=== PATIENT | female | born 1945 | race Caucasian/White ===

== ENCOUNTER 2022-10-16 13:08 | Emergency (ER) | payer MEDICARE, OTHER, SELFPAY ==
--- NOTE | ~2022-10-16 | CT_ITS ---
EXAMINATION: CT ABDOMEN AND PELVIS WITH CONTRAST CLINICAL INFORMATION: Lower abdominal pain COMPARISON: None TECHNIQUE: Multidetector volumetric images were obtained from the superior aspect of the liver through the pubic symphysis following administration 85 mL of Omnipaque 350 intravenous contrast. Sagittal and coronal reformatted images were obtained on the technologist's workstation. Oral contrast: Yes This CT examination was performed using dose optimization techniques as appropriate, variously including the following: *Automated exposure control *Adjustment of mA and/or kV according to patient size (this includes techniques or standardized protocols for targeted exams where dose is matched to indication/reason for exam; i.e. extremities or head) *Use of iterative reconstruction technique DLP: 309 mGy-cm FINDINGS: LUNG BASES: The heart is enlarged. Tricuspid heart valve and pacemaker leads and median sternotomy wires. There is a moderate partially loculated right pleural effusion. There is a right middle lobe atelectasis/consolidation. A 1 cm peripheral or subpleural left lower lobe nodule. LIVER, GALLBLADDER, AND BILIARY TREE: The liver is enlarged. There is heterogeneous enhancement of the liver. The intrahepatic IVC and hepatic veins are prominent and findings may be related to right heart strain. No definite focal liver lesion. Normal gallbladder. No biliary duct dilatation. PANCREAS: Unremarkable. SPLEEN: Unremarkable. ADRENAL GLANDS: Unremarkable. KIDNEYS AND URETERS: There is a small 2 mm nonobstructing left lower pole renal stone. The kidneys are otherwise normal. BLADDER: Unremarkable. GASTROINTESTINAL TRACT: There is diverticulosis of the colon. There is wall thickening of the sigmoid colon. There is wall thickening of the rectum. There are prominent perirectal vessels. Appearance is questionable for proctocolitis or diverticulitis. The proximal right transverse and left colon appear distended and filled with stool and partial secondary obstruction should be considered. The appendix is normal. The small bowel is normal. The stomach is normal. There is a small amount of ascites in the abdomen and pelvis. ABDOMINAL WALL: No significant hernia is appreciated. LYMPH NODES: Normal. VASCULAR: Severe atherosclerotic disease. PELVIC VISCERA: Fatty right adnexal lesion probably representing a dermoid. OSSEOUS STRUCTURES: Mild scoliosis and degenerative changes of the spine. CT/CT abdomen pelvis w IV con IMPRESSION: Proctocolitis versus diverticulitis. The more proximal colon is distended and filled with stool and partial secondary obstruction should be considered. Small amount of ascites in the abdomen and pelvis. Small nonobstructing left renal stone. Probable right adnexal dermoid. Enlarged heart. Partially loculated right pleural effusion. Right middle lobe atelectasis/consolidation. 1 cm left lower lobe nodule. According to the UPDATED 2017 Fleischner Society recommendations, the advised follow-up imaging for 10 mm solid nodule: Follow-up chest CT at this time recommend Fleischner guidelines were followed.
[2022-10-16 13:18] VITALS: BP 133/43; BP 133/54; PULSE 69; RESP 18; TEMP 36.8; O2SAT 93; O2SAT 98; BMI 24.8
[2022-10-16 13:24] VITALS: BP 133/34; PULSE 69; RESP 16; TEMP 36.8; O2SAT 92
--- NOTE | 2022-10-16 13:56 | ED_ITS ---
HPI - Abdominal Pain General Chief Complaint: GI Bleed Stated Complaint: black tarry diarrhea x 2 days Time Seen by Provider: 10/16/22 13:24 Source: patient and EMS Mode of arrival: EMS Limitations: no limitations History of Present Illness HPI narrative: 77-year-old female with a history of coronary disease, hypertension, hyperlipidemia, diabetes who is here with complaints of rectal prolapse which is intermittent for the last 3 months. Patient reports she can not stand it anymore and she wants to have it repaired. She reports that she has had a prior procedure for rectal prolapse (Dr Landin at [facility]). She noticed some leaking from her rectum as well as some bleeding. Stools are normal in appearance she is also having some lower abdominal discomfort for the last few days with no vomiting, fevers or chills. Related Data Previous Rx's Medication Instructions Recorded levofloxacin 500 mg tablet 500 mg PO DAILY 7 days #7 tabs 10/16/22 metronidazole 500 mg tablet 500 mg PO BID 7 days #14 tabs 10/16/22 Allergies Allergy/AdvReac Type Severity Reaction Status Date / Time Penicillins [PENICILLINS] Allergy Intermediate RASH Unverified 05/16/20 16:06 Review of Systems Review of Systems Yes all other systems are reviewed and are negative Constitutional: Reports no additional constitutional complaints, Denies body ache(s), Denies chills, Denies fever(s), Denies headache(s) and Denies weakness Eyes: Reports no additional eye complaints and Denies change in vision Reports system reviewed and no additional complaints, except as documented, Denies dizziness, Denies headache(s), Denies nasal congestion, Denies nasal discharge and Denies neck pain Cardiovascular: Reports no additional cardiovascular complaints, Denies chest pain, Denies leg edema and Denies dyspnea Respiratory: Reports no additional respiratory complaints, Denies cough and Kvng es dyspnea Gastrointestinal: Reports no additional gastrointestinal complaints, Reports abdominal pain, Denies diarrhea, Denies nausea and Denies vomiting Comments: +rectal pain/leaking Genitourinary: Reports no additional female genitourinary complaints and Denies urinary incontinence Musculoskeletal: Reports no additional musculoskeletal complaints, Denies back pain, Denies arthralgias, Denies joint swelling, Denies neck pain, Denies numbness and Denies tingling Skin/Breast: Reports system reviewed and no additional complaints, except as docu and Denies rash Reports system reviewed and no additional complaints, except as documented, Denies dizziness, Denies headache(s), Denies numbness, Denies tingling and Denies weakness PMFSH Past Medical History Attestation statement: The following information was validated with the patient. Source: old records reviewed Social History Social History Alcohol intake: never Smoked in Last 30 Days: No Use of substances other than those prescribed or required for medical reasons: No Advance Directives: Yes Advance Directives Information Provided: Yes Advance Directives on File: No Physical Exam ED Vital Signs: Vital Signs - 24 hr 10/16/22 13:18 10/16/22 13:24 Temperature 98.2 F 98.2 F Pulse Rate 69 69 Respiratory Rate 18 16 Blood Pressure 133/54 L 133/34 L Pulse Oximetry 93 92 Oxygen Delivery Method Room Air Room Air BMI result Body Mass Index 24.8 Const General: cooperative, healthy appearing, comfortable and no acute distress Orientation/consciousness: patient oriented x3 Limitations: no limitations HENMT Head: Yes normal to inspection Ears: hearing grossly normal bilaterally Eyes General: appearance normal, both eyes and all related structures Pupils: Equal, round and reactive pupils present Neck Neck: Yes normal visual inspection Chest Chest palpation & inspection: normal inspection of the chest Resp Effort & Inspection: normal respiratory effort Auscultation: clear to auscultation bilaterally Cardio Rate: regular rate Rhythm: regular rhythm Peripheral pulses: Peripheral pulses 2+ throughout GI Other: No rectal prolapse on exam Rectal exam with brown stool There is some excoriation noted around the anal area with irritation and scant bleeding Inspection: Yes normal to inspection Palpation (GI): Soft to palpation and Tenderness to palpation present (GI) (mild TTP-) Auscultation: normal bowel sounds General: Yes no CVA tenderness Back/Spine/Pelvis Back: no CVA tenderness Thoracic/Lumbar Spine: thoracic and lumbar spine normal to inspection Skin General skin exam: no rashes or lesions noted Neuro General: patient oriented x3 and moves all extremities Cranial nerves: Yes Equal, round and reactive pupils present Cognition (Neuro): normal cognition Gait exam (Neuro): Normal gait present Extrem General: Yes normal to inspection Course Course Course Narrative: CT shows proctocolitis and diverticulitis. Patient will be discharged home with antibiotics. Recommend she follow up outpatient with her primary care doctor and her General surgery team at [facility]. She was informed by our surgery team here that we did not perform any rectal prolapse procedures. Reviewed worrisome signs and symptoms of when to return to the emergency room. Comfortable plan for discharge home Medical Decision Making Medical Decision Making MDM Narrative: 77-year-old female here with complaints of rectal prolapse for the last 3 months which she believes is worsened over the last few days and lower abdominal pain with no complaints of vomiting or fever. On exam no rectal prolapse currently. Mild tenderness the lower abdomen bilaterally. Rectal exam with brown stool. No bleeding Will obtain labs, UA, CT Differential Diagnosis Differential Diagnoses: The differential diagnosis associated with the presentation includes may have intermittent rectal prolapse doubt GIB Admission/Observation Consideration of admission/observation: Escalation of care including admission/observation considered Pain is well controlled. No current vomiting. Patient does not need admission for IV antibiotics as she is able to tolerate these at home. Will discharge patient home with course of antibiotics for presumed diverticulitis Consult Healthcare Provider Management of the patient was discussed with: Heavy Duty Mechanic I spoke to Dr. Bustos about the patient's CT scan. Clinically low concern for obstruction as patient is moving her bowels and had a bowel movement this morning. Abdomen is nontoxic. No current rectal prolapse. Patient with some excoriation noted around the anus which is likely secondary to irritation which may be causing some bleeding that the patient is noticing. Lab Data MDM Lab Attestation statement: I reviewed the patient's lab results. 10/16/22 14:00 10/16/22 14:00 Labs: Lab Results 10/16/22 10/16/22 10/16/22 Range/Units 14:00 14:00 14:00 WBC 13.7 H (4.8-10.8) X10*3/uL RBC 3.79 L (4.20-5.50) X10*6/uL Hgb 12.4 (12.0-16.0) g/dl Hct 37.6 (37.0-47.0) % MCV 99.2 H (80.0-98.0) fL MCH 32.7 (27.0-33.0) pg MCHC 33.0 (31.0-35.0) g/dl RDW 15.1 (11.0-16.0) % Plt Count 267 (160-400) X10*3/uL MPV 9.5 (9.4-12.3) fL Immature Gran % (Auto) 0.4 (0.0-0.4) % Neut % (Auto) 88.6 H (45-73) % Lymph % (Auto) 5.0 L (20-40) % [place] % (Auto) 5.0 (2-11) % Eos % (Auto) 0.6 (0-4) % Baso % (Auto) 0.4 (0-2) % Lymph # (Auto) 0.7 L (1.2-4.9) X10*3/uL [place] # (Auto) 0.7 (0.1-1.2) X10*3/uL Eos # (Auto) 0.1 (0.0-0.4) X10*3/uL Baso # (Auto) 0.1 (0.0-0.2) X10*3/uL Abs Immat Gran (auto) 0.05 H (0.00-0.03) X10*3/uL Absolute Neuts (auto) 12.2 H (2.0-8.3) x10*3/uL Absolute Nucleated RBC 0.000 (0.0-0.012) X10*3/uL Nucleated RBC % (auto) 0.0 (0.0-0.2) /100WBC PT 30.3 H (10.0-13.1) SEC INR 2.5 H (0.9-1.1) Sodium 141 (135-145) mmol/L Potassium 4.3 (3.3-5.1) mmol/L Chloride 100 (96-108) mmol/L Carbon Dioxide 29 (22-29) mmol/L Anion Gap 16 (12-20) BUN 22 H (9-16) mg/dL Creatinine 0.83 (0.5-1.4) mg/dL Estim Creat Clear Calc 39.4 Estimated GFR > 60 Random Glucose 94 (60-115) mg/dL Calcium 9.2 (8.4-10.2) mg/dL Total Bilirubin 1.5 H (0.0-1.0) mg/dL Direct Bilirubin 0.4 (0.0-0.5) mg/dL AST 41 H (5-31) U/L ALT 24 (0-31) U/L Alkaline Phosphatase 119 H (39-117) U/L Total Protein 5.6 L (6.5-8.0) g/dL Albumin 3.4 L (3.5-5.0) g/dL Independent Interpretation I performed an independent interpretation of an: CT Scan Interpretation: I independently reviewed the CT scan and agree with radiologist's report Radiology Impression Discussion of test interpretation with radiology: I have reviewed the radiologist's reading. Radiologist Impression: FINDINGS: LUNG BASES: The heart is enlarged. Tricuspid heart valve and pacemaker leads and median sternotomy wires. There is a moderate partially loculated right pleural effusion. There is a right middle lobe atelectasis/consolidation. A 1 cm peripheral or subpleural left lower lobe nodule. LIVER, GALLBLADDER, AND BILIARY TREE: The liver is enlarged. There is heterogeneous enhancement of the liver. The intrahepatic IVC and hepatic veins are prominent and findings may be related to right heart strain. No definite focal liver lesion. Normal gallbladder. No biliary duct dilatation. PANCREAS: Unremarkable.? SPLEEN: Unremarkable.? ADRENAL GLANDS: Unremarkable.? KIDNEYS AND URETERS: There is a small 2 mm nonobstructing left lower pole renal stone. The kidneys are otherwise normal.? BLADDER: Unremarkable.? GASTROINTESTINAL TRACT: There is diverticulosis of the colon. There is wall thickening of the sigmoid colon. There is wall thickening of the rectum. There are prominent perirectal vessels. Appearance is questionable for proctocolitis or diverticulitis. The proximal right transverse and left colon appear distended and filled with stool and partial secondary obstruction should be considered. The appendix is normal. The small bowel is normal. The stomach is normal. There is a small amount of ascites in the abdomen and pelvis. ABDOMINAL WALL: No significant hernia is appreciated.? LYMPH NODES: Normal. VASCULAR: Severe atherosclerotic disease. PELVIC VISCERA: Fatty right adnexal lesion probably representing a dermoid. OSSEOUS STRUCTURES: Mild scoliosis and degenerative changes of the spine. CT/CT abdomen pelvis w IV con IMPRESSION: Proctocolitis versus diverticulitis. The more proximal colon is distended and filled with stool and partial secondary obstruction should be considered. Small amount of ascites in the abdomen and pelvis. ? Small nonobstructing left renal stone. Probable right adnexal dermoid. ? Enlarged heart. Partially loculated right pleural effusion. Right middle lobe atelectasis/consolidation. 1 cm left lower lobe nodule. According to the UPDATED 2017 Fleischner Society recommendations, the advised follow-up imaging for 10 mm solid nodule: Follow-up chest CT at this time recommend ? Fleischner guidelines were followed. Independent Historian Clinical information obtained from an independent historian. History obtained from or confirmed by: EMS Medications Administered Discontinued Medications Generic Name Dose Route Start Last Admin Trade Name Freq PRN Reason Stop Dose Admin Iohexol 100 ml 10/16/22 15:10 10/16/22 15:10 Iohexol 350 Mg/Ml 100 Ml Infus..Btl IV 10/16/22 15:11 85 ml ONCE ONE Administration Discharge Plan Discharge Clinical Impression: Proctocolitis, Diverticulitis Patient Disposition: Home, Self-Care Instructions: Diverticulitis (ED) Additional Instructions: Follow-up with your surgeons at [facility] for your intermittent rectal prolapse since we do not do this surgery here Take the antibiotics as prescribed Return for worsening abdominal pain, fever, vomiting Prescriptions: New metronidazole 500 mg tablet 500 mg PO BID 7 Days Qty: 14 0RF levofloxacin 500 mg tablet 500 mg PO DAILY 7 Days Qty: 7 0RF Referrals: Damon Tee MD [Primary Care Provider] - 1 week
[2022-10-16 14:08] LABS: MANUAL DIFF FLAG NO
[2022-10-16 14:11] LABS: Basophils Absolute Auto 0.1 X10*3/uL (0.0-0.2); Basophils Percent Auto 0.4 % (0-2); Eosinophils Absolute Auto 0.1 X10*3/uL (0.0-0.4); Eosinophils Percent Auto 0.6 % (0-4); Hematocrit 37.6 % (37.0-47.0); Hemoglobin 12.4 g/dl (12.0-16.0); Imm Gran Abs Auto 0.05 X10*3/uL (0.00-0.03); Imm Gran Pct Auto 0.4 % (0.0-0.4); Lymphocytes Absolute Auto 0.7 X10*3/uL (1.2-4.9); Mean Corpuscular Hemoglobin 32.7 pg (27.0-33.0); Mean Corpuscular Volume 99.2 fL (80.0-98.0); Mean Platelet Volume 9.5 fL (9.4-12.3); Monocytes Absolute Auto 0.7 X10*3/uL (0.1-1.2); Neutrophils Absolute Auto 12.2 x10*3/uL (2.0-8.3); Neutrophils Percent Auto 88.6 % (45-73); Platelet Count 267 X10*3/uL (160-400); Red Blood Count 3.79 X10*6/uL (4.20-5.50); Red Cell Distribution Width 15.1 % (11.0-16.0); White Blood Count 13.7 X10*3/uL (4.8-10.8)
[2022-10-16 14:29] LABS: Alanine Aminotransferase 24 U/L (0-31); Albumin Level 3.4 g/dL (3.5-5.0); Alkaline Phosphatase 119 U/L (39-117); Anion Gap 16 (12-20); Aspartate Amino Transferase 41 U/L (5-31); Bilirubin Direct 0.4 mg/dL (0.0-0.5); Bilirubin Total 1.5 mg/dL (0.0-1.0); Blood Urea Nitrogen 22 mg/dL (9-16); Calcium 9.2 mg/dL (8.4-10.2); Carbon Dioxide 29 mmol/L (22-29); Chloride 100 mmol/L (96-108); Creatinine Clr Calc Pharmacy 39.4; Estimated Glomerular Filt Rate > 60; Glucose Random 94 mg/dL (60-115); Potassium 4.3 mmol/L (3.3-5.1); Sodium 141 mmol/L (135-145); Total Protein 5.6 g/dL (6.5-8.0)
[2022-10-16 14:32] LABS: INTERNATIONAL NORM RATIO 2.5 (0.9-1.1); Prothrombin Time 30.3 SEC (10.0-13.1)
[2022-10-16] MEDS: iohexoL 350 MG/ML 100 ML INFUS..BTL IV (15:10)
--- NOTE | 2022-10-16 17:18 | PM.CNGS ---
History of Present Illness Consult details Consult date: 10/16/22 Narrative: [age] year old female here in the ER because of multiple complaints. She says she has had recurrent rectal prolapse along with lower abdominal pain. She says she seems to be incontinent of stool Describes as leakage from rectum . She is extremely anxious. She says she had undergone repair of a rectal prolapse 5 years ago. However, this had recurred and she continues to have had this problem periodically. She says she continues to see her surgeon in [facility] but he was told that she is no longer a candidate for surgery. She denies any fever or chills. She denies any nausea or vomiting. She says she does have BMs and problem is that she has this leakage especially after BMs as well. Review of Systems Constitutional: Constitutional: Denies chills and Denies fever(s) Cardiovascular: Cardiovascular: Denies chest pain Gastrointestinal: Gastrointestinal: Reports abdominal pain and Denies vomiting Genitourinary: Genitourinary: Denies dysuria Neurologic: Denies behavioral changes Psychiatric: Psychiatric: Reports anxiety and Denies behavioral changes [facility] Social History Social History Alcohol intake: never Smoked in Last 30 Days: No Use of substances other than those prescribed or required for medical reasons: No Advance Directives: Yes Advance Directives Information Provided: Yes Advance Directives on File: No Meds Allergies Allergy/AdvReac Type Severity Reaction Status Date / Time Penicillins [PENICILLINS] Allergy Intermediate RASH Unverified 05/16/20 16:06 Physical Exam Vital Signs: Vital Signs: Last Vital Signs Temp 98.2 F 10/16/22 13:24 Pulse 69 10/16/22 13:24 Resp 16 10/16/22 13:24 BP 133/34 L 10/16/22 13:24 Pulse Ox 92 10/16/22 13:24 O2 Del Method 10/16/22 13:24 BMI result Body Mass Index 24.8 Const: Other: Appears very anxious General: comfortable and no acute distress Resp: Effort & Inspection: normal respiratory effort Cardio: Rate: regular rate GI: Other: rectal exam shows an extremely lax sphincter tone, with practically absent squeeze or resting pressure, no masses, no active prolapse at this time, no bleeding Palpation (GI): Soft to palpation, not firm, nontender and no guarding Results Labs 10/16/22 14:00 10/16/22 14:00 Labs: Abnormal lab results 10/16/22 10/16/22 10/16/22 Range/Units 14:00 14:00 14:00 WBC 13.7 H (4.8-10.8) X10*3/uL RBC 3.79 L (4.20-5.50) X10*6/uL MCV 99.2 H (80.0-98.0) fL Neut % (Auto) 88.6 H (45-73) % Lymph % (Auto) 5.0 L (20-40) % Lymph # (Auto) 0.7 L (1.2-4.9) X10*3/uL Abs Immat Gran (auto) 0.05 H (0.00-0.03) X10*3/uL Absolute Neuts (auto) 12.2 H (2.0-8.3) x10*3/uL PT 30.3 H (10.0-13.1) SEC INR 2.5 H (0.9-1.1) BUN 22 H (9-16) mg/dL Total Bilirubin 1.5 H (0.0-1.0) mg/dL AST 41 H (5-31) U/L Alkaline Phosphatase 119 H (39-117) U/L Total Protein 5.6 L (6.5-8.0) g/dL Albumin 3.4 L (3.5-5.0) g/dL Short CBC 10/16/22 Range/Units 14:00 WBC 13.7 H (4.8-10.8) X10*3/uL Hgb 12.4 (12.0-16.0) g/dl Hct 37.6 (37.0-47.0) % Plt Count 267 (160-400) X10*3/uL BMP 10/16/22 14:00 Sodium 141 Potassium 4.3 Chloride 100 Carbon Dioxide 29 BUN 22 H Creatinine 0.83 Calcium 9.2 Liver Function 10/16/22 Range/Units 14:00 Total Bilirubin 1.5 H (0.0-1.0) mg/dL Direct Bilirubin 0.4 (0.0-0.5) mg/dL AST 41 H (5-31) U/L ALT 24 (0-31) U/L Alkaline Phosphatase 119 H (39-117) U/L Albumin 3.4 L (3.5-5.0) g/dL All other labs normal. Laboratory Results WBC 13.7 X10*3/uL (4.8-10.8) H 10/16/22 14:00 RBC 3.79 X10*6/uL (4.20-5.50) L 10/16/22 14:00 Hgb 12.4 g/dl (12.0-16.0) 10/16/22 14:00 Hct 37.6 % (37.0-47.0) 10/16/22 14:00 MCV 99.2 fL (80.0-98.0) H 10/16/22 14:00 MCH 32.7 pg (27.0-33.0) 10/16/22 14:00 MCHC 33.0 g/dl (31.0-35.0) 10/16/22 14:00 RDW 15.1 % (11.0-16.0) 10/16/22 14:00 Plt Count 267 X10*3/uL (160-400) 10/16/22 14:00 MPV 9.5 fL (9.4-12.3) 10/16/22 14:00 Immature Gran % (Auto) 0.4 % (0.0-0.4) 10/16/22 14:00 Neut % (Auto) 88.6 % (45-73) H 10/16/22 14:00 Lymph % (Auto) 5.0 % (20-40) L 10/16/22 14:00 [place] % (Auto) 5.0 % (2-11) 10/16/22 14:00 Eos % (Auto) 0.6 % (0-4) 10/16/22 14:00 Baso % (Auto) 0.4 % (0-2) 10/16/22 14:00 Lymph # (Auto) 0.7 X10*3/uL (1.2-4.9) L 10/16/22 14:00 [place] # (Auto) 0.7 X10*3/uL (0.1-1.2) 10/16/22 14:00 Eos # (Auto) 0.1 X10*3/uL (0.0-0.4) 10/16/22 14:00 Baso # (Auto) 0.1 X10*3/uL (0.0-0.2) 10/16/22 14:00 Abs Immat Gran (auto) 0.05 X10*3/uL (0.00-0.03) H 10/16/22 14:00 Absolute Neuts (auto) 12.2 x10*3/uL (2.0-8.3) H 10/16/22 14:00 Absolute Nucleated RBC 0.000 X10*3/uL (0.0-0.012) 10/16/22 14:00 Nucleated RBC % (auto) 0.0 /100WBC (0.0-0.2) 10/16/22 14:00 PT 30.3 SEC (10.0-13.1) H 10/16/22 14:00 INR 2.5 (0.9-1.1) H 10/16/22 14:00 Sodium 141 mmol/L (135-145) 10/16/22 14:00 Potassium 4.3 mmol/L (3.3-5.1) 10/16/22 14:00 Chloride 100 mmol/L (96-108) 10/16/22 14:00 Carbon Dioxide 29 mmol/L (22-29) 10/16/22 14:00 Anion Gap 16 (12-20) 10/16/22 14:00 BUN 22 mg/dL (9-16) H 10/16/22 14:00 Creatinine 0.83 mg/dL (0.5-1.4) 10/16/22 14:00 Estim Creat Clear Calc 39.4 10/16/22 14:00 Estimated GFR > 60 10/16/22 14:00 Random Glucose 94 mg/dL (60-115) 10/16/22 14:00 Calcium 9.2 mg/dL (8.4-10.2) 10/16/22 14:00 Total Bilirubin 1.5 mg/dL (0.0-1.0) H 10/16/22 14:00 Direct Bilirubin 0.4 mg/dL (0.0-0.5) 10/16/22 14:00 AST 41 U/L (5-31) H 10/16/22 14:00 ALT 24 U/L (0-31) 10/16/22 14:00 Alkaline Phosphatase 119 U/L (39-117) H 10/16/22 14:00 Total Protein 5.6 g/dL (6.5-8.0) L 10/16/22 14:00 Albumin 3.4 g/dL (3.5-5.0) L 10/16/22 14:00 Impressions Abdomen/Pelvis CT 10/16/22 15:19 IMPRESSION: Proctocolitis versus diverticulitis. The more proximal colon is distended and filled with stool and partial secondary obstruction should be considered. Small amount of ascites in the abdomen and pelvis. Small nonobstructing left renal stone. Probable right adnexal dermoid. Enlarged heart. Partially loculated right pleural effusion. Right middle lobe atelectasis/consolidation. 1 cm left lower lobe nodule. According to the UPDATED 2017 Fleischner Society recommendations, the advised follow-up imaging for 10 mm solid nodule: Follow-up chest CT at this time recommend Fleischner guidelines were followed. Assessment and Plan (1) Proctocolitis: Status: Inactive The changes seen on her CT scan are likely secondary to congestion from her frequent rectal prolapse along with subsequent congestion of the rectum. She has a very benign exam otherwise. I had a long discussion with her about this. This does not appear to be an acute problem for her. Physical exam does not suggest acute diverticulitis. I had recommended for her to discuss further management plans with her surgeon in [facility]. she is extremely anxious because she was told that there is no surgical intervention that is planned for her prolapse. It does not appear that she needs admission from a surgical standpoint. She says she was comfortable with this plan although she had remained extremely anxious. Time Spent With Patient Time: Total time managing care of this patient today ____ minutes. Procedures Date of Service Date of Service: 10/16/22
== END 2022-10-16 17:30 | disposition home or self-care (01) ==
PROVIDERS: Nurse Practitioner Family; Emergency Provider Emergency Medicine; PCP Family Medicine
DX: K57.32 Diverticulitis of large intestine without perforation or abscess without bleeding (principal); K51.20 Ulcerative (chronic) proctitis without complications; K62.3 Rectal prolapse; I10 Essential (primary) hypertension; E11.9 Type 2 diabetes mellitus without complications; E78.5 Hyperlipidemia, unspecified
CPT/HCPCS: 36415; 74177; 80048; 80076; 85025; 85610; 99284; Q9967